=== PATIENT | female | born 1965 | race Caucasian/White ===

== ENCOUNTER 2017-08-12 15:15 | Emergency (ER) | payer MEDICARE, MEDICAID ==
[~2017-08-12] VITALS: Ht 154.9 cm; Wt 52.8 kg
[~2017-08-12 15:15] MED LIST: ACETAMINOPHEN325 M1 PO; ALENDRONATE; AMLODIPINE BESYL5 MG PO; APAP500 PO; ASPIR 8181 MG PO; ASPIRIN325 PO; AZITHROMYCIN 2250 MG PO; BACTRIM DS TAB1 EACH PO; BANZEL200 MG; BANZEL200 MG PO; BANZEL400 MG PO; BENADRYL PO; BENADRYL25 MG PO; BENEFIBER98 GM; BISA-LAX5 MG PO; BISACODYL SUPP10 MG RECTAL; C-500500 MG PO; CALCIUM; CALCIUM 500 WI1 EAC3 PO; CALCIUM 600 +1 EA11 PO; CALCIUM 600 +1 EAC1; CALCIUM 600 +1 EAC5 PO; CARBAMAZEPINE PO; CARBAMAZEPINE300 MG PO; CARBATROL PO; CIPRO500 MG PO; CIPROFLOXACIN500 M1 PO; CITRUCEL CLEAR539 G1; CITRUCEL479 GM PO; CLARITIN-D 24 H1 TA1; CLARITIN10 MG; CLARITIN10 MG PO; COUGH DM30 MG/5 ML; DEPAKOTE 250MG250 M1 PO; DEPAKOTE500 MG PO; DEPO-PROVER150 MG/M1 IM; DEPO-PROVERA; DESITIN113 GM TOP; DIASTAT2.5 MG RC; DIASTAT2.5 MG RECTAL; DIAZEPAM1 EAC1 RECTAL; DIFLUCAN150 M1 PO; DILANTIN; DILANTIN 100 M100 MG PO; DILANTIN100 MG; DILANTIN100 MG PO; DILANTIN30 MG; DILANTIN30 MG PO; DILANTIN50 MG PO; ENOXAPARIN40 MG/0.1 SUBQ; FLAGYL500 MG PO; FLONASE NASAL; FOSAMAX 70 MG T70 M1 PO; GABAPENTIN PO; GUAIATUSSI100 MG/5 M PO; HALLS COUGH DR1 EACH PO; HYDROCODONE-AP1 EAC6 PO; HYDROGEN PEROX480 M1; KEFLEX500 M1 PO; LAMICTAL PO; LAMOTRIGINE200 MG PO; LAMOTRIGINE25 M2 PO; LAXATIVE5 M1 PO; LIPITOR10 MG PO; LISINOPRIL10 MG PO; LOPRESSOR25; LOPRESSOR25 PO; LORATIDINE 10 M10 M1 PO; LOVASTAT40 PO; MACROBID 100 M100 M2 PO; MAPAP500 M1 PO; METAMUCIL PAC1 UDPK1 PO; MIRALAX17 GM PO; NAPROSYN500 M1; NAPROSYN500 MG PO; NASONEX17 GM NASAL; NEURONTIN 300300 M1 PO; NIZORAL120 ML; NIZORAL120 ML TOP; NIZORAL120 ML TP; NORCO 5-325 TA1 EACH PO; OMEPRAZOLE40 MG PO; ONDANSETRON HCL4 M2 PO; OYSTER SHELL 51 EACH PO; OYSTER SHELL C1 EA14 PO; PEPCID20 MG PO; PEPTO-BISM262 MG/15 PO; PHENYTOIN SODI100 M3 PO; PRAVACHOL40 MG PO; PRAVASTATIN SOD20 MG PO; PRENATAL; PRENATAL PO; PRENATE PLUS T1 EAC1 PO; PROVERA; SENNA-LAX8.6 MG PO; SENOKOT-S TABL1 EACH PO; TRAZODONE 150150 M1 PO; TRAZODONE HCL50 MG PO; TRINATE TABLET1 TAB; TRIPLE ANTIBIOT30 G2 TOP; Trazodone PO; VIMPAT100 MG PO; VIMPAT200 MG PO; VIMPAT50 MG PO; VITAMIN C 250250 MG; VITAMIN C 250250 MG PO; VITAMIN D 5050000 I1; VITAMIN D1000 UNI1 PO; VITAMINC500 PO; ZOFRAN4 MG PO; ZONEGRAN100 MG PO; ZONEGRAN50 MG PO; [UNRECOGNIZED DRUG - OTHER] PO; [UNRECOGNIZED DRUG - OTHER] PO
[2017-08-12 15:45] LABS: ABSOLUTE BASOPHILS 0.1 thou/uL (0.0-0.2); ABSOLUTE EOSINOPHILS 0.1 thou/uL (0.0-0.7); ABSOLUTE LYMPHOCYTES 2.3 thou/uL (0.8-5.3); ABSOLUTE MONOCYTES 0.5 thou/uL (0.0-1.2); ABSOLUTE NEUTROPHILS 4.3 thou/uL (1.6-8.1); BASOPHILS 0.8 %; EOSINOPHILS 1.4 %; HEMATOCRIT 36.3 % (37.0-47.0); HEMOGLOBIN 12.3 gm/dL (12.0-15.0); LYMPHOCYTES 31.8 %; MCH 33.2 pg (26.0-34.0); MCHC 33.9 g/dL (28.0-37.0); MCV 98.1 fL (80.0-100.0); MONOCYTES 7.1 %; MPV 6.8 fl. (7.2-11.1); NUCLEATED RBCS 0 /100WBC; PLATELET COUNT* 404 thou/uL (150-400); POLYS 58.9 %; RDW-CV 12.2 % (10.5-14.5); WBC 7.2 thou/uL (4.0-11.0)
[2017-08-12 15:54] LABS: ANION GAP 6 mmol/L (7-16); BUN 16 mg/dL (7-18); CALCIUM 8.7 mg/dL (8.5-10.1); CHLORIDE 102 mmol/L (98-107); CO2 30 mmol/L (21-32); CREATININE 0.4 mg/dL (0.6-1.3); GLUCOSE 95 mg/dL (70-99); POTASSIUM 4.5 mmol/L (3.5-5.1); SODIUM 138 mmol/L (136-145)
[2017-08-12 16:01] LABS: ALBUMIN 2.7 g/dL (3.4-5.0); ALKALINE PHOSPHATASE 78 U/L (46-116); LIPASE 237 U/L (73-393); SGOT 18 U/L (15-37); SGPT 35 U/L (30-65); TOTAL BILIRUBIN 0.2 mg/dL (<0.1-1.0); TOTAL PROTEIN 6.2 g/dL (6.4-8.2); TROPONIN-I LEVEL <0.06 ng/mL (<0.06)
[2017-08-12] MEDS ORDERED: DIASTAT ACUDIA1 EAC1 RECTAL (16:12)
[2017-08-12] MEDS ORDERED: VITAMIN C500 M2 PO (16:13)
[2017-08-12] MEDS ORDERED: BANZEL200 MG PO (16:14)
[2017-08-12] MEDS ORDERED: CARBATROL PO (16:15)
[2017-08-12] MEDS ORDERED: DEPO-PROVE150 MG/11 IM (16:16)
[2017-08-12] MEDS ORDERED: LAMICTAL100 MG PO (16:16)
[2017-08-12] MEDS ORDERED: CLARITIN10 MG PO (16:17)
[2017-08-12] MEDS ORDERED: PRENATAL PLUS1 EAC5 PO (16:17)
[2017-08-12] MEDS ORDERED: VIMPAT200 MG PO (16:18)
[2017-08-12] MEDS ORDERED: SENNA-S TABLET1 EACH PO (16:20)
[2017-08-12] MEDS ORDERED: MIRALAX17 GM PO (16:20)
[2017-08-12] MEDS ORDERED: CALCIUM 500 +1 EAC5 PO (16:21)
[2017-08-12] MEDS ORDERED: ONDANSETRON ODT4 MG PO (16:22)
[2017-08-12] MEDS ORDERED: OMEPRAZOLE 20 M20 M1 PO (16:22)
[2017-08-12] MEDS ORDERED: NAPROSYN500 MG PO (16:23)
[2017-08-12] MEDS ORDERED: VITAMIN E400 UNIT PO (16:23)
[2017-08-12] MEDS ORDERED: TRAZODONE HCL100 MG PO (16:24)
[2017-08-12] MEDS ORDERED: ASPIRIN81 M2 PO (16:24)
[2017-08-12] MEDS ORDERED: LIPITOR10 MG PO (16:24)
[2017-08-12] MEDS ORDERED: PHENYTOIN SODI100 M3 PO (16:25)
[2017-08-12 16:58] LABS: URINE BILIRUBIN NEGATIVE (Negative); URINE BLOOD TRACE (Negative); URINE CLARITY CLEAR; URINE COLOR YELLOW; URINE GLUCOSE-RANDOM NEGATIVE (Negative); URINE KETONES NEGATIVE (Negative); URINE LEUKOCYTES-REFLEX NEGATIVE (Negative); URINE NITRITE-REFLEX NEGATIVE (Negative); URINE PROTEIN NEGATIVE (Negative); URINE UROBILINOGEN 0.2 E.U./dl (0.2-1.0)
[2017-08-12 18:46] VITALS: BP 124/70
--- NOTE | 2017-08-15 11:28 | EKG ---
[place] [address] ELECTROCARDIOGRAM REPORT Name: MARY QUINTANILLA Room: [facility]#: [id number] Admission: 08/12/17 Attend Phys: Discharge: 08/12/17 Date of : 61 Report #: [id number] THIS REPORT FOR: //name// [facility] ED Test Date: 2017-08-12 Test Time: 16:33:02 Pat Name: MARY QUINTANILLA Department: Room: Gender: F Film Rental Clerk: STUDENT : 1965 Requested By: Leslie Roldan Order Number: [id number] MD: Josh Vasquez Measurements Intervals West Rate: 82 P: 72 UT: 145 QRS: 47 QRSD: 86 T: 63 QT: 370 QTc: 432 Interpretive Statements Sinus rhythm ST elev, probable normal early repol pattern Compared to ECG 01/08/2017 19:03:03 ST (T wave) deviation now present Electronically Signed On 08-15-2017 11:27:54 CDT by Josh Vasquez [email or web address] <ELECTRONICALLY SIGNED> By: Josh Vasquez MD, [facility] 08/15/17 [id number] Josh Vasquez MD, [facility] /EPI
== END 2017-08-12 18:47 | disposition home or self-care (01) ==
LOC: M.ERS 15:15
PROVIDERS: Physician Assistant
DX: I95.9 Hypotension, unspecified (principal); E78.5 Hyperlipidemia, unspecified; M81.0 Age-related osteoporosis without current pathological fracture; Z88.6 Allergy status to analgesic agent; Z88.5 Allergy status to narcotic agent